=== PATIENT | female | born 1970 | race Caucasian/White ===

== ENCOUNTER 2024-05-29 10:07 | Emergency (ER) | payer MEDICAID ==
[~2024-05-29] VITALS: Ht 162.6 cm; Wt 61.0 kg
[2024-05-29 10:17] VITALS: BP 122/80; RESP 16; TEMP 98.9; O2SAT 100
[2024-05-29 10:42] VITALS: PULSE 102; O2SAT 100
[2024-05-29] MEDS ORDERED: DOXY100T28 MT (15:06)
[2024-05-29] MEDS: CEFTRIAXONE SODIUM 500MG VIAL IM ONE (15:37)
[2024-06-01 04:09] LABS: CHLAMYDIA TRACHOMATIS NAA Negative (Negative); NEISSERIA GONORRHOEAE NAA Negative (Negative)
== END 2024-05-29 15:40 | disposition home or self-care (01) ==
LOC: ER 10:07
DX: N89.8 Other specified noninflammatory disorders of vagina (principal)
CPT/HCPCS: 87491; 87591; 87210; 99284; Z7610